=== PATIENT | male | born 1945 | race Caucasian/White ===

== ENCOUNTER → 2019-03-21 14:41 | Outpatient (CLI) | payer OTHER, SELFPAY ==
--- NOTE | 2019-03-21 14:54 | RAD_ITS ---
STUDY: X-RAY - LEFT FOOT CLINICAL: Male, 73 years old. Pain TECHNIQUE: 3 view(s) of the foot. COMPARISON: None. FINDINGS: Normal talus, calcaneus, and tarsal bones. Plantar calcaneal spurring. Normal visualized subtalar, talonavicular, calcaneocuboid, tarsal and tarsometatarsal articulations. Normal metatarsi. Normal metatarsophalangeal joint of the great toe. Normal tibial and fibular sesamoid bones. Normal interphalangeal joint of the great toe. Normal phalanges of the great toe. Normal second through fifth metatarsophalangeal joints. Normal interphalangeal joints and phalanges of the lesser toes. The soft tissue structures are unremarkable. RAD/Foot min 3 Views IMPRESSION: Normal x-ray examination of the foot. Electronically Signed: Onofre Nina DO at 22:40 EDT Tel [phone], Service support ,
== END ==
PROVIDERS: Referring Provider Podiatrist; Visit Provider Podiatrist
DX: S90.32XA Contusion of left foot, initial encounter (principal); X58.XXXA Exposure to other specified factors, initial encounter; Y93.9 Activity, unspecified; Y92.9 Unspecified place or not applicable; Y99.9 Unspecified external cause status
CPT/HCPCS: 73630

== ENCOUNTER → 2023-06-07 | Outpatient (CLI) | payer MEDICARE, SELFPAY ==
[2023-06-07 10:08] LABS: Absolute Lymphocyte Count 1.35 X10^3/uL (0.83-4.51); Absolute Neutrophil Count 4.3 X10^3/uL (2.0-7.7); Basophil# 0.07 X10^3/uL; Basophil% 1.1 % (0-1); Eosinophil# 0.14 X10^3/uL; Eosinophils% 2.2 % (0-5); Hematocrit 48.6 % (40-54); Hemoglobin 16.2 g/dL (13.0-16.5); Lymphocyte # 1.35 X10^3/ul (0.83-4.51); Lymphocyte % 20.8 % (19-41); Mean Corp Hgb Conc 33.3 g/dL (32-36); Mean Platelet Vol. 9.7 fl (6.2-12.0); Monocyte# 0.58 X10^3/uL; Monocyte% 8.9 % (0-10); NRBC Flagged by Analyzer 0 % (0-5); Neutrophil # 4.33 X10^3/uL (2.7-7.7); Neutrophil % 66.7 % (47-70); Platelet Count 227 K/mm3 (150-450); RBC Distribution Width CV 13.3 % (11.6-14.6); RBC Distribution Width SD 43.9 fl (35.1-43.9); White Blood Count 6.5 K/mm3 (4.4-11.0)
[2023-06-07 10:44] LABS: ALB/GLOB Ratio 1.1 RATIO (0.9-2.4); AST(SGOT) 27 U/L (15-37); Alanine Aminotransfer ALT/SGPT 31 U/L (16-61); Albumin, Serum 3.6 g/dL (3.2-5.0); Alkaline Phosphatase 56 U/L (45-117); Anion Gap 4 (5-15); BUN 16 mg/dL (7-18); BUN/Creat Ratio 17.9 RATIO (10-20); Calcium,Total 8.6 mg/dL (8.5-10.1); Chloride 109 mmol/L (98-107); Cholesterol 200 mg/dL (200); Creatinine, Serum 0.89 mg/dL (0.70-1.30); EST Glomerular Filtration Rate 87 mL/min (>60); Est Glom Filt Rate - Afr Amer 106 mL/min (>60); Globulin 3.4 g/dL (2.2-4.2); Glucose 102 mg/dL (74-106); High Density Lipoprotein 52 mg/dL; Potassium 3.9 mmol/L (3.5-5.1); Sodium Level 140 mmol/L (136-145); Triglycerides 112 mg/dL; Very Low Density Lipoprotein 22 mg/dL (5-40)
== END | disposition home or self-care (01) ==
LOC: MFPLAB 08:51
PROVIDERS: PCP Family Medicine; Visit Provider Family Medicine
DX: F41.1 Generalized anxiety disorder (principal); E78.2 Mixed hyperlipidemia
CPT/HCPCS: 36415; 80053; 80061; 85025

== ENCOUNTER 2024-05-08 14:00 | Outpatient (CLI) | payer MEDICARE, SELFPAY ==
--- NOTE | 2024-05-09 07:32 | EKG12_ITS ---
Test Reason : PRE OP Blood Pressure : / mmHG Vent. Rate : 075 BPM Atrial Rate : 416 BPM P-R Int : 000 ms QRS Dur : 092 ms QT Int : 432 ms P-R-T Axes : 000 -34 077 degrees QTc Int : 482 ms Atrial fibrillation Left axis deviation Prolonged QT Abnormal ECG Confirmed by OPAL FLOYD, DEANNA ([id number]), online content editor RICK PIZARRO ([id number]) on 05/09/2024 1:12:16 PM Referred By: Nima Gunn Confirmed By:DEANNA JOSEPH MD
[2024-05-09 08:46] LABS: Hemoglobin 15.8 g/dL (13.0-16.5); Mean Corp Hgb Conc 34.3 g/dL (32-36); Mean Corpuscular Hgb 29.6 pg (27.0-32.0); Mean Corpuscular Volume 86.3 fL (80-94); Mean Platelet Vol. 9.5 fl (6.2-12.0); Platelet Count 221 K/mm3 (150-450); RBC Distribution Width CV 13.2 % (11.6-14.6); RBC Distribution Width SD 41.4 fl (35.1-43.9); Red Blood Count 5.33 M/mm3 (4.6-6.2); White Blood Count 5.9 K/mm3 (4.4-11.0)
[2024-05-09 09:16] LABS: Anion Gap 4 (5-15); BUN 16 mg/dL (7-18); BUN/Creat Ratio 16.6 RATIO (10-20); Calcium,Total 9.3 mg/dL (8.5-10.1); Chloride 108 mmol/L (98-107); Creatinine, Serum 0.96 mg/dL (0.70-1.30); EST Glomerular Filtration Rate 80 mL/min (>60); Est Glom Filt Rate - Afr Amer 97 mL/min (>60); Glucose 112 mg/dL (74-106); Potassium 3.7 mmol/L (3.5-5.1); Sodium Level 139 mmol/L (136-145)
== END 2024-05-08 23:00 | disposition home or self-care (01) ==
LOC: SDC 11-07 21:35
PROVIDERS: Anesthesiology; PCP Family Medicine; Referring Provider Surgery; Visit Provider Surgery
DX: Z01.818 Encounter for other preprocedural examination (principal); Z53.9 Procedure and treatment not carried out, unspecified reason
CPT/HCPCS: 36415; 80048; 85027; 93005

== ENCOUNTER → 2024-05-29 | Outpatient (CLI) | payer MEDICARE, SELFPAY ==
[2024-05-29 14:01] LABS: Hemoglobin A1c 5.6 % (3.8-5.6)
== END | disposition home or self-care (01) ==
LOC: MFPLAB 08:03
PROVIDERS: PCP Family Medicine; Referring Provider Family Medicine; Visit Provider Family Medicine
DX: R73.9 Hyperglycemia, unspecified (principal)
CPT/HCPCS: 36415; 83036

== ENCOUNTER → 2024-06-20 | Outpatient (CLI) | payer MEDICARE, SELFPAY ==
--- NOTE | 2024-06-20 06:52 | ECHOD_ITS ---
Reason For Study: PRE-OP CLEARANCE Procedure This was a 2D Doppler, Color Flow transthoracic echocardiogram. Exam performed in department. Left Ventricle Normal LV size. Mild concentric left ventricular hypertrophy. The left ventricular ejection fraction is 60 %. Unable to assess diastolic dysfunction due to arrhythmia. Right Ventricle Normal right ventricle. Atria There is severe biatrial dilatation. Mitral Valve Mild-Moderate (1-2+) mitral valve insufficiency. Tricuspid Valve Mild tricuspid valve insufficiency. Normal pulmonary artery pressure. Aortic Valve Trisinus/trileaflet aortic valve. Mild-Moderate (1-2+) aortic valve insufficiency. Pulmonic Valve The pulmonic valve is not well visualized. Great Vessels Severely dilated ascending aorta. Pericardium/Pleural No pericardial effusion. MMode/2D Measurements & Calculations LVIDd: 5.5 cm IVSd: 1.3 cm LVOT diam: 2.1 cm LVIDs: 3.2 cm LVPWd: 1.4 cm LVOT area: 3.3 cm2 RVDd: 3.8 cm FS: 42.2 % asc Aorta Diam: 5.3 cm LAV(MOD-bp): 96.7 ml LVAd ap4: 27.7 cm2 LAV(MOD-bp) Indexed: 44.5 ml/m2 LVLd ap4: 7.7 cm LAV(MOD-sp2): 104.4 ml EDV(MOD-sp4): 79.6 ml LAV(MOD-sp4): 87.6 ml EDV(sp4-el): 84.9 ml LVAs ap4: 17.1 cm2 LVLs ap4: 6.6 cm ESV(MOD-sp4): 36.4 ml ESV(sp4-el): 37.5 ml EF(MOD-sp4): 54.2 % EF(sp4-el): 55.8 % LVAd ap2: 31.6 cm2 SV(MOD-sp4): 43.1 ml SV(MOD-sp2): 63.4 ml LVLd ap2: 8.1 cm EDV(MOD-sp2): 102.1 ml EDV(sp2-el): 104.4 ml LVAs ap2: 17.6 cm2 LVLs ap2: 7.1 cm ESV(MOD-sp2): 38.7 ml ESV(sp2-el): 37.4 ml EF(MOD-sp2): 62.1 % SV(sp4-el): 47.4 ml Ao sinus diam: 4.[address] Junction: 3.7 cm LA dimension(2D): 5.3 cm LA A4 area: 28.1 cm2 RA A4 area: 21.7 cm2 TAPSE: 2.3 cm Time Measurements MV dec time: 0.19 sec Doppler Measurements & Calculations MV E max north: 87.6 cm/sec Lat Peak E' North: 12.4 cm/sec Med Peak E' North: 10.4 cm/sec E/E' lat: 7.0 E/E' med: 8.4 Ao V2 max: 131.7 cm/sec AI max north: 425.9 cm/sec LV V1 max: 99.8 cm/sec Ao max P.9 mmHg AI max P.6 mmHg LV V1 max P.0 mmHg Ao V2 mean: 78.6 cm/sec AI dec slope: 264.8 cm/sec2 LV V1 mean P.8 mmHg Ao mean P.0 mmHg AI P1/2t: 471.1 msec LV V1 mean: 61.0 cm/sec Ao V2 VTI: 25.2 cm LV V1 VTI: 19.5 cm AV (velocity ratio): 0.77 BARBARA(I,D): 2.6 cm2 BARBARA(V,D): 2.5 cm2 SV(LVOT): 65.1 ml PA V2 max: 96.5 cm/sec TR max north: 252.7 cm/sec PA max PG (full): 1.8 mmHg TR max P.5 mmHg ECHO/Echo Complete Interpretation Summary Mild concentric left ventricular hypertrophy. The left ventricular ejection fraction is 60 %. There is severe biatrial dilatation. Mild-Moderate (1-2+) mitral valve insufficiency. Mild tricuspid valve insufficiency. Mild-Moderate (1-2+) aortic valve insufficiency. The ascending aorta appears severely dilated. Recommend CT scan of the chest fo r further evaluation. Ordering Physician: lCara Esparza Referring Physician: Clara Esparza MD Performed By: Fany Macias RDCS
--- NOTE | 2024-06-21 15:52 | STRESSREP_ITS ---
Stress Test Report Date: 06/20/2024 Procedure: Pharmacologic stress nuclear imaging study Indications: Atrial fibrillation Consent: Per the patient Procedure: The patient underwent pharmacologic (Regadenoson 0.4mg ) evaluation with a peak heart rate of 95 beats per minute (67%predicted maximal heart rate) and a peak blood pressure of 162/88 mmHg. The baseline ECG demonstrated atrial fibrillation. The peak pharmacologic ECG demonstrated no ischemic changes. There was no complaint of chest discomfort during pharmacologic infusion or recovery. The patient was injected with 14.1 millicuries of technetium 99m Cardiolite and subsequently rest SPECT Cardiolite nuclear imaging was obtained in the horizontal long, vertical long, and short axis views. The patient underwent pharmacologic (Regadenoson) evaluation. The patient was injected with 44.3 millicuries of technetium 99m Cardiolite and subsequently stress SPECT Cardiolite nuclear imaging was obtained in the horizontal long, vertical long, and short axis views. A gated Cardiolite study at peak stress was obtained. The examination was stopped secondary to completion of protocol. Rest and stress SPECT Cardiolite nuclear imaging status post realignment, normalization, and attenuation correction demonstrate a very small apical perfusion defect that may denote reversible ischemia. There is end systolic thickening and brightening. The gated Cardiolite study demonstrates myocardial thickening and inward wall motion. The reported LVEF is 62 %. Impression: 1. Pharmacologic (Regadenoson) evaluation 2. Peak pharmacologic ECG with no diagnostic ischemic changes. 3. Baseline atrial fibrillation. 5. A very small reversible defect of the apex that may denote ischemia. This comprises less than 5% of the myocardium. Low risk test. 6. The gated Cardiolite study reports an LVEF of 62%. This note was generated with [employer] software. It may contain incorrect words, spelling, and punctuation that were not noted in checking the note before signing.
== END | disposition home or self-care (01) ==
LOC: CVS 06:50
PROVIDERS: PCP Family Medicine; Referring Provider Internal Medicine Cardiovascular Disease; Visit Provider Internal Medicine Cardiovascular Disease
DX: Z01.810 Encounter for preprocedural cardiovascular examination (principal); I48.91 Unspecified atrial fibrillation; E78.2 Mixed hyperlipidemia; R60.0 Localized edema; I10 Essential (primary) hypertension; I36.1 Nonrheumatic tricuspid (valve) insufficiency; I34.0 Nonrheumatic mitral (valve) insufficiency; I35.1 Nonrheumatic aortic (valve) insufficiency
CPT/HCPCS: 78452; 93017; 93306; A9500; A4216; J2785

== ENCOUNTER → 2024-07-20 | Outpatient (CLI) | payer MEDICARE, SELFPAY ==
--- NOTE | 2024-07-20 06:50 | CT_ITS ---
STUDY: CTA CHEST REASON FOR EXAM: Male, 78 years old. Dilated aortic root, RADIATION DOSAGE (If Supplied By Facility): CTDIvol = ( 18.70 ) mGy, DLP = ( 850.97 ) mGycm TECHNIQUE: The examination was performed with the intravenous administration of IV 100mL Isovue-370. Post-processing of the angiographic images was performed, with multiplanar reformation and 3D reconstruction. Individualized dose optimization techniques were used for this CT. COMPARISON: None. FINDINGS: Normal enhancement of the main pulmonary artery and right and left pulmonary arteries. Normal enhancement of the bilateral peripheral pulmonary arteries. There is no demonstrated pulmonary embolism. There is aneurysmal dilatation of the ascending aorta. The transverse diameter of the ascending aorta measures 52.9 mm''s. There is no demonstrated aortic dissection. There are calcifications of the coronary arteries. There are small visualized mediastinal lymph nodes, which are within normal size limits, and with normal morphology. Normal hilar regions. Normal visualized trachea and bronchi. The lungs are well expanded. There is a 1 cm x 0.7 cm nodular density in the anterior aspect of the right upper lobe. Adjacent to this, there are increased markings surrounding the nodule suggestive of scarring. Normal pleura. Normal chest wall structures. There are degenerative changes of thoracic spine. Normal visualized upper abdomen. 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 Coronary artery calcification. Focal area of scarring in the anterior aspect of the right upper lobe with a 1 cm x 0.7 cm nodule most likely representing scarring although correlation with a PET scan is recommended for further evaluation. Electronically Signed: Caleb Lou MD at 9:06 EST ,
[2024-07-20 07:15] LABS: CREATININE FINGERSTICK < 1.0 mg/dL (0.70-1.30); EGFR FINGERSTICK > 60.0000 mL/min (>60)
== END | disposition home or self-care (01) ==
LOC: CT 06:47
PROVIDERS: PCP Family Medicine; Referring Provider Nurse Practitioner Family; Visit Provider Nurse Practitioner Family
DX: I77.810 Thoracic aortic ectasia (principal)
CPT/HCPCS: 71275; Q9967